=== PATIENT | female | born 1985 | race Two or more races ===

== ENCOUNTER 2018-08-13 22:44 | Emergency (ER) | payer OTHER ==
[~2018-08-13] VITALS: Ht 165.1 cm; Wt 44.0 kg
[2018-08-13] MEDS ORDERED: ZOFRAN4 MG (23:22)
== END 2018-08-14 07:40 | disposition home or self-care (01) ==
LOC: ER 22:44
DX: O21.1 Hyperemesis gravidarum with metabolic disturbance (principal); Z34.01 Encounter for supervision of normal first pregnancy, first trimester

== ENCOUNTER 2018-11-09 01:30 | Emergency (ER) | payer OTHER ==
[~2018-11-09] VITALS: Ht 165.1 cm; Wt 51.3 kg
[~2018-11-09 01:30] MED LIST: ZOFRAN4 MG
[2018-11-09] MEDS ORDERED: IRON1TAB4 PO (05:46)
== END 2018-11-09 05:53 | disposition home or self-care (01) ==
LOC: ER 01:30
DX: O26.892 Other specified pregnancy related conditions, second trimester (principal); R04.0 Epistaxis; Z34.02 Encounter for supervision of normal first pregnancy, second trimester

== ENCOUNTER 2019-01-01 17:25 | Outpatient (CLI) | payer OTHER ==
[~2019-01-01 17:25] MED LIST changes: +IRON1TAB4 PO
== END 2019-01-02 10:54 | disposition home or self-care (01) ==
LOC: OBS/DEL 17:25
DX: O26.893 Other specified pregnancy related conditions, third trimester (principal); M62.830 Muscle spasm of back; O99.013 Anemia complicating pregnancy, third trimester; D64.89 Other specified anemias; Z34.03 Encounter for supervision of normal first pregnancy, third trimester

== ENCOUNTER 2019-02-07 11:23 | Inpatient (IN) | payer OTHER ==
[~2019-02-07] VITALS: Ht 165.1 cm; Wt 3.2 kg
[2019-02-10] MEDS ORDERED: ZANTAC300 MG PO (16:16)
== END 2019-02-18 15:50 | DRG 788 ==
LOC: OB/GYN 02-10 14:45 → O/R 02-15 05:09 → OB/GYN 02-15 14:45
PROVIDERS: ADMIT Obstetrics & Gynecology
PROC: 4A1HXCZ Monitoring of Products of Conception, Cardiac Rate, External Approach (ICD-10-PCS; 2019-02-15)
PROC: 4A033R1 Measurement of Arterial Saturation, Peripheral, Percutaneous Approach (ICD-10-PCS; 2019-02-15)
PROC: 10D00Z1 Extraction of Products of Conception, Low, Open Approach (ICD-10-PCS; principal; 2019-02-15 12:00)
DX: O44.03 Complete placenta previa NOS or without hemorrhage, third trimester (principal); O32.8XX0 Maternal care for other malpresentation of fetus, not applicable or unspecified; Z3A.39 39 weeks gestation of pregnancy; Z37.0 Single live birth